=== PATIENT | male | born 1960 | race Caucasian/White ===

== ENCOUNTER 2019-03-09 07:18 | Day surgery (SDC) | payer OTHER ==
[2019-03-07 15:42] VITALS: BMI 23.1
[2019-03-09] MEDS ORDERED: PROPOFOL 20 ML ONE (08:37)
[2019-03-09] MEDS ORDERED: MIDAZOLAM HCL 2 MG/2 ML SINGLE DOSE VIAL ONE (08:37)
[2019-03-09] MEDS ORDERED: ceFAZolin SODIUM 1 GM VIAL ONE (08:40)
[2019-03-09] MEDS ORDERED: LIDOCAINE HCL 2% (50ML VIAL) INF ONE (08:48)
[2019-03-09] MEDS ORDERED: DEXAMETHASONE SOD PHOSPHATE 4 MG/1 ML VIAL ONE (08:53)
[2019-03-09] MEDS ORDERED: KETOROLAC TROMETHAMINE 30 MG/1 ML VIAL ONE (08:53)
[2019-03-09] MEDS ORDERED: ONDANSETRON 4 MG/2 ML VIAL ONE (08:53)
[2019-03-09 09:38] VITALS: BP 107/76; PULSE 61; TEMP 97.4
[2019-03-09] MEDS ORDERED: ACETAMINOPHEN 325 MG TABLET (FP) PO PRN (11:20)
[2019-03-09] MEDS ORDERED: oxyCODONE HCL 5 MG TABLET PO PRN (11:20)
[2019-03-09] MEDS ORDERED: ONDANSETRON 4 MG/2 ML VIAL IVPUSH PRN (11:20)
[2019-03-09] MEDS ORDERED: LACTATED RINGERS SOLUTION 1,000 ML IV SCH (11:30)
--- NOTE | 2019-03-11 17:56 | PATH ---
Surgical Pathology Report Patient Name: CLAUDIA STARK [facility]. Rec. #: [id number] /Age/Gender: 1960 (Age: 58) / M Account: [id number] Location: [facility] AMBUL[facility]ORY Taken: 03/09/2019 Received: 03/09/2019 Reported: 03/11/2019 Physicians: Arsalan Nance M.D. Specimen(s) Received LEFT LONG FINGER MASS Clinical History Left long finger mass Final Diagnosis LEFT LONG FINGER MASS, EXCISION: PORTION OF FIBROCONNECTIVE TISSUE SHOWING FOCAL CYSTIC AND MYXOID CHANGE, CONSISTENT WITH GANGLION CYST. SUGGEST CLINICAL CORRELATION. THE OVERLYING SKIN SHOWING HYPERKERATOSIS. Electronically Signed Erick Richardson M.D. Gross Description Received in formalin, labeled "left long finger mass" are 4 cardoza, irregular portions of soft tissue measuring 0.2 to 0.4cm. in greatest dimension. The specimen is submitted in toto in one cassette. PARADISE/03/10/2019 karen/03/10/2019
--- NOTE | 2019-03-13 21:01 | OP ---
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 OPERATIVE PROCEDURE: 1. Left long finger mass excision. 2. Left long finger distal interphalangeal joint debridement. SURGEON: Marjorie Zurita MD INSTRUMENT/CONTROL TECHNICIAN: AUGUSTO Koehler ANESTHESIA: Local with sedation. COMPLICATIONS: None. ESTIMATED BLOOD LOSS: Minimal. INDICATION FOR PROCEDURE: The patient is a 58-year-old male with the above finding, indicated for operative treatment. He had previously scheduled before and had canceled as it had disappeared, but it had come back multiple times and was deforming significantly his nail bed and leaking continuously. He desired surgery at this time, and risks, benefits, and alternatives were discussed with him at length. PROCEDURE: After proper identification of patient and correct operative site, patient was brought to operating room, placed supine on the table, all prominences well padded. Sedation and local anesthesia were given. The left upper extremity was prepped and draped in the usual sterile fashion. A well-padded tourniquet was placed over the sterile prep. Esmarch bandage used to exsanguinate the left upper extremity. Tourniquet was inflated to 250 mmHg. The mass was found to be a mucoid cystic structure at the very central aspect of the eponychial fold. It had been chronically draining but was not infected. A distally-based flap of tissue was elevated with 2-minute axial incisions and a transverse incision dorsally. The flap was elevated off and the mucoid cyst was found to be centralized right at the germinal matrix, and in order to remove it, we did have to make a small incision in the dermal matrix. The mass was traced back to the distal interphalangeal joint, where joint debridement was performed. Osteophytes were removed and synovitis was removed. The mass was sent for pathological evaluation. A small yung in the nail bed was repaired with a 6-0 nylon suture. The wound was irrigated and repaired with 5-0 fast-absorbing plain gut suture and Dermabond and sterile dressings were applied. The patient was reversed from anesthesia and brought to the recovery room in stable condition. He tolerated the procedure well. MARJORIE ZURITA M.D. DEIDRE/[id number]
== END 2019-03-09 10:25 | disposition home or self-care (01) ==
LOC: FASU 07:18
PROVIDERS: ATTEND Orthopaedic Surgery Hand Surgery
PROC: 0RBX0ZZ Excision of Left Finger Phalangeal Joint, Open Approach (ICD-10-PCS; 2019-03-09)
PROC: 0JBK0ZZ Excision of Left Hand Subcutaneous Tissue and Fascia, Open Approach (ICD-10-PCS; principal; 2019-03-09 08:48)
DX: D21.11 Benign neoplasm of connective and other soft tissue of right upper limb, including shoulder (principal); M19.042 Primary osteoarthritis, left hand
CPT/HCPCS: 88304-TC